=== PATIENT | female | born 1960 | race Caucasian/White ===

== ENCOUNTER 2022-02-20 06:58 | Outpatient (CLI) | payer OTHER | END 2022-02-20 23:59 | disposition home or self-care (01) | LOC: LAB 06:58 | PROVIDERS: ATTEND Specialist | DX: Z01.812 Encounter for preprocedural laboratory examination (principal); Z20.822 Contact with and (suspected) exposure to COVID-19 | CPT/HCPCS: 71045; U0003; C9803 ==

== ENCOUNTER 2022-08-29 13:02 | Outpatient (CLI) | payer OTHER | END 2022-08-29 23:59 | disposition home or self-care (01) | LOC: LAB 13:02 | PROVIDERS: ATTEND Specialist | DX: Z01.812 Encounter for preprocedural laboratory examination (principal); Z20.822 Contact with and (suspected) exposure to COVID-19 | CPT/HCPCS: C9803 ==

== ENCOUNTER 2022-09-04 05:05 | Inpatient (IN) | payer OTHER ==
[~2022-09-04] VITALS: Ht 154.9 cm; Wt 72.1 kg
[2022-09-04] MEDS ORDERED: POLYMYXIN B SULFATE 500,000 UNITS ONE (05:48)
[2022-09-04] MEDS ORDERED: BUPIVACAINE 0.5 % PF 150 MG/30 ML VIAL ONE ×2 (05:48→06:03)
[2022-09-04] MEDS ORDERED: CEFAZOLIN 2 GM in IV D5W 100 ML IV ONE (06:00)
[2022-09-04] MEDS ORDERED: FENTANYL PF 250MCG/5ML AMPUL ONE (06:02)
[2022-09-04] MEDS ORDERED: MIDAZOLAM HCL 2 MG/2ML VIAL ONE (06:03)
[2022-09-04 06:11] VITALS: BP 134/73
[2022-09-04] MEDS ORDERED: TRANEXAMIC ACID 3,000 MG in SODIUM CHLORIDE IRRIG SOLUTION 70 ML IR ONE (06:30)
[2022-09-04] MEDS ORDERED: HYDROMORPHONE 1 MG/1 ML DISP.SYRIN ONE ×2 (08:30→08:53)
[2022-09-04] MEDS ORDERED: MEPERIDINE25 MG SYR 25 MG/ML VIAL ONE (08:43)
[2022-09-04 09:57] VITALS: BP 140/81
[2022-09-04] MEDS ORDERED: BISACODYL SUPP (10 MG) 10 MG/SUPP.RECT SUPP.RECT RC PRN (10:30)
[2022-09-04] MEDS ORDERED: ACETAMINOPHEN 325 MG TABLET PO PRN (10:30)
[2022-09-04] MEDS ORDERED: ZOLPIDEM TARTRATE 5 MG TABLET PO PRN (10:30)
[2022-09-04] MEDS ORDERED: SENNOSIDES 8.6 MG TABLET PO PRN (10:30)
[2022-09-04] MEDS ORDERED: ONDANSETRON HCL/PF 4 MG/2 ML VIAL IVP PRN (10:30)
[2022-09-04] MEDS ORDERED: DOCUSATE SODIUM 250 MG CAPSULE PO PRN (10:30)
[2022-09-04] MEDS: IV D5/0.45 NACL 1,000 ML IV PRN (11:13)
[2022-09-04 11:42] LABS: HEMOGLOBIN 12.3 g/dL (11.5-14.8)
[2022-09-04] MEDS: HYDROMORPHONE 1 MG/1 ML DISP.SYRIN IV PRN (12:37)
[2022-09-04] MEDS ORDERED: LOSA50TA39 PO (14:09)
[2022-09-04] MEDS ORDERED: ROSU10TA2 PO (14:09)
[2022-09-04] MEDS ORDERED: METF-440 PO (14:09)
[2022-09-04] MEDS: ANCEF 1 GM/50 ML D5W IV SCH ×4 (14:10→21:22)
[2022-09-04] MEDS: oxyCODONE IR immediate release 5 MG PO PRN ×4 (14:18→23:47)
[2022-09-04 15:57] VITALS: BP 136/67
[2022-09-04] MEDS: METFORMIN 500 MG TABLET PO SCH (17:12)
[2022-09-04] MEDS: FOLIC ACID 1 MG TABLET PO SCH (17:12)
[2022-09-04] MEDS ORDERED: diphenhydrAMINE HCL 25 MG CAPSULE PO PRN (19:00)
[2022-09-04] MEDS ORDERED: MAG HYDROX/AL HYDROX/SIMETH 30 ML UDC PO PRN (19:00)
[2022-09-04] MEDS ORDERED: MAGNESIUM HYDROXIDE 30 ML UDC PO PRN (19:00)
[2022-09-04 20:00] VITALS: BP 128/71
[2022-09-04] MEDS: FAMOTIDINE (20 MG) 20 MG TABLET PO SCH (20:30)
[2022-09-04] MEDS ORDERED: ATORVASTATIN 10 MG TABLET PO SCH (22:00)
[2022-09-05] MEDS: oxyCODONE IR immediate release 5 MG PO PRN ×4 (02:59→22:24)
[2022-09-05] MEDS: HYDROMORPHONE 1 MG/1 ML DISP.SYRIN IV PRN (06:01)
[2022-09-05 07:00] VITALS: BP 141/67
[2022-09-05] MEDS: ASPIRIN 325 MG TABLET PO SCH (08:39)
[2022-09-05] MEDS: METFORMIN 500 MG TABLET PO SCH ×2 (08:39→16:32)
[2022-09-05] MEDS: DOCUSATE SODIUM 100 MG CAPSULE PO SCH ×2 (08:40→16:32)
[2022-09-05] MEDS: FOLIC ACID 1 MG TABLET PO SCH (08:40)
[2022-09-05] MEDS: LOSARTAN POTASSIUM 50 MG TABLET PO SCH (08:40)
[2022-09-05] MEDS: FAMOTIDINE (20 MG) 20 MG TABLET PO SCH ×2 (08:41→21:27)
[2022-09-05] MEDS ORDERED: FOLI0.4T6 PO (11:08)
[2022-09-05] MEDS ORDERED: DOCU-141 PO (11:08)
[2022-09-05] MEDS ORDERED: FERR325T24 PO (11:08)
[2022-09-05] MEDS ORDERED: oxyCODONE IR immediate release 5 MG PO ONE (12:21)
[2022-09-05] MEDS ORDERED: DEXTROSE 50%-WATER 50 ML DISP.SYRIN IV PRN (15:00)
[2022-09-05 16:16] VITALS: BP 142/67
[2022-09-05] MEDS: BLOOD SUGAR DIAGNOSTIC 1 EACH STRIP IN SCH ×2 (16:42→21:35)
[2022-09-05] MEDS ORDERED: DOCUSATE SODIUM 100 MG CAPSULE PO SCH (17:00)
[2022-09-05] MEDS: IV D5/0.45 NACL 1,000 ML IV PRN (18:48)
[2022-09-05 20:36] VITALS: BP 131/64
[2022-09-05] MEDS: ATORVASTATIN 40 MG TABLET PO SCH (21:27)
[2022-09-05] MEDS: INSULIN REGULAR, HUMAN 100 UNIT/ML 3 ML VIAL SQ PRN (21:35)
[2022-09-06 06:14] LABS: BASOPHILS % (AUTO) 0.3 % (0.0-2.0); EOSINOPHILS % (AUTO) 0.1 % (0.0-6.0); HEMATOCRIT 33 % (33-45); LYMPHOCYTES # (AUTO) 1.9 K/uL (0.8-4.8); LYMPHOCYTES % (AUTO) 18.4 % (20.0-44.0); MEAN CORPUSCULAR HGB CONC 34 g/dl (31.0-36.0); MEAN CORPUSCULAR VOLUME 88 fL (82-100); MONOCYTES # (AUTO) 0.9 K/uL (0.1-1.30); MONOCYTES % (AUTO) 8.6 % (2.0-12.0); NEUTROPHILS # (AUTO) 7.3 K/uL (1.8-8.9); NEUTROPHILS % (AUTO) 72.6 % (43.0-81.0); PLATELET COUNT (AUTO) 188 K/uL (150-450); WHITE BLOOD COUNT (AUTO) 10.1 K/uL (4.3-11.0)
[2022-09-06 06:30] LABS: CALCIUM, SERUM 9.3 mg/dL (8.5-10.1); CREATININE 0.6 mg/dL (0.6-1.3); POTASSIUM 3.6 mmol/L (3.5-5.1)
[2022-09-06] MEDS: BLOOD SUGAR DIAGNOSTIC 1 EACH STRIP IN SCH ×4 (06:33→21:31)
[2022-09-06] MEDS: INSULIN REGULAR, HUMAN 100 UNIT/ML 3 ML VIAL SQ PRN ×4 (06:33→21:31)
[2022-09-06] MEDS: oxyCODONE IR immediate release 5 MG PO PRN ×2 (07:45→17:12)
[2022-09-06] MEDS: FOLIC ACID 1 MG TABLET PO SCH (08:21)
[2022-09-06] MEDS: ASPIRIN 325 MG TABLET PO SCH (08:21)
[2022-09-06] MEDS: FAMOTIDINE (20 MG) 20 MG TABLET PO SCH ×2 (08:21→20:16)
[2022-09-06] MEDS: DOCUSATE SODIUM 100 MG CAPSULE PO SCH ×2 (08:22→17:02)
[2022-09-06] MEDS: METFORMIN 500 MG TABLET PO SCH ×3 (08:22→17:02)
[2022-09-06] MEDS: FERROUS SULFATE (325 MG) 325 MG/TAB TABLET PO SCH (08:22)
[2022-09-06] MEDS: LOSARTAN POTASSIUM 50 MG TABLET PO SCH (08:22)
[2022-09-06] MEDS ORDERED: FOLIC ACID 1 MG TABLET PO SCH (09:00)
[2022-09-06] MEDS ORDERED: LOSARTAN POTASSIUM 50 MG TABLET PO SCH (09:00)
[2022-09-06 09:07] VITALS: BP 133/66
[2022-09-06] MEDS ORDERED: MAGNESIUM HYDROXIDE 30 ML UDC PO ONE (11:39)
[2022-09-06] MEDS: HYDROMORPHONE 1 MG/1 ML DISP.SYRIN IV PRN (13:44)
[2022-09-06 18:31] VITALS: BP 131/64
[2022-09-06 20:00] VITALS: BP 130/66
[2022-09-06] MEDS: ATORVASTATIN 40 MG TABLET PO SCH (21:27)
[2022-09-07] MEDS: oxyCODONE IR immediate release 5 MG PO PRN ×2 (01:48→08:43)
[2022-09-07 06:24] LABS: BASOPHILS % (AUTO) 0.4 % (0.0-2.0); EOSINOPHILS % (AUTO) 0.3 % (0.0-6.0); HEMATOCRIT 33 % (33-45); HEMOGLOBIN 10.9 g/dL (11.5-14.8); LYMPHOCYTES # (AUTO) 2.3 K/uL (0.8-4.8); LYMPHOCYTES % (AUTO) 21.2 % (20.0-44.0); MEAN CORPUSCULAR HGB CONC 33 g/dl (31.0-36.0); MEAN CORPUSCULAR VOLUME 89 fL (82-100); MONOCYTES # (AUTO) 0.8 K/uL (0.1-1.30); MONOCYTES % (AUTO) 7.6 % (2.0-12.0); NEUTROPHILS # (AUTO) 7.5 K/uL (1.8-8.9); NEUTROPHILS % (AUTO) 70.5 % (43.0-81.0); PLATELET COUNT (AUTO) 199 K/uL (150-450); RED BLOOD CELL COUNT(AUTO) 3.69 MIL/uL (4.0-5.2); WHITE BLOOD COUNT (AUTO) 10.7 K/uL (4.3-11.0)
[2022-09-07] MEDS: BLOOD SUGAR DIAGNOSTIC 1 EACH STRIP IN SCH ×2 (06:35→11:46)
[2022-09-07] MEDS: INSULIN REGULAR, HUMAN 100 UNIT/ML 3 ML VIAL SQ PRN ×2 (06:36→11:24)
[2022-09-07 08:00] VITALS: BP 119/65
[2022-09-07] MEDS: ASPIRIN 325 MG TABLET PO SCH (08:19)
[2022-09-07] MEDS: FERROUS SULFATE (325 MG) 325 MG/TAB TABLET PO SCH (08:21)
[2022-09-07] MEDS: DOCUSATE SODIUM 100 MG CAPSULE PO SCH (08:22)
[2022-09-07] MEDS: FAMOTIDINE (20 MG) 20 MG TABLET PO SCH (08:22)
[2022-09-07] MEDS: FOLIC ACID 1 MG TABLET PO SCH (08:22)
[2022-09-07] MEDS: METFORMIN 500 MG TABLET PO SCH (08:22)
[2022-09-07 08:23] VITALS: BP 119/65
[2022-09-07] MEDS: LOSARTAN POTASSIUM 50 MG TABLET PO SCH (08:23)
[2022-09-07] MEDS ORDERED: POLYETHYLENE GLYCOL 3350 17 GM POWD.PACK PO ONE (09:00)
[2022-09-07] MEDS ORDERED: OXYC5CAP18 PO (09:49)
[2022-09-07] MEDS ORDERED: ASPI-992 PO (09:49)
[2022-09-07] MEDS ORDERED: DOCU100C36 PO (09:49)
[2022-09-07] MEDS ORDERED: ACET325T53 PO (09:49)
[2022-09-07] MEDS ORDERED: FAMO20TA80 PO (09:49)
== END 2022-09-07 12:45 | disposition home health service (06) | DRG 470 ==
LOC: DS 05:05 → MED 05:07
PROVIDERS: ADMIT Nurse Practitioner Acute Care; ATTEND Nurse Practitioner Acute Care
PROC: 0SRC0J9 Replacement of Right Knee Joint with Synthetic Substitute, Cemented, Open Approach (ICD-10-PCS; principal; 2022-09-04)
DX: M17.11 Unilateral primary osteoarthritis, right knee (principal); D68.69 Other thrombophilia; I10 Essential (primary) hypertension; E11.9 Type 2 diabetes mellitus without complications; X58.XXXA Exposure to other specified factors, initial encounter; Y99.0 Civilian activity done for income or pay; Z74.09 Other reduced mobility; D64.9 Anemia, unspecified; E66.01 Morbid (severe) obesity due to excess calories; Z79.82 Long term (current) use of aspirin; Z68.30 Body mass index [BMI] 30.0-30.9, adult; E78.5 Hyperlipidemia, unspecified
CPT/HCPCS: 36415; 80048-TC; 82962-TC; 85025-TC; 85027-TC; 87081-TC; 88305-TC; 88311-TC; 97110-TC; 97116-TC; 97530-TC; A4217; A4223; C1713; C1776; G0378; J0690; J1100; J1170; J1815; J2175; J2250; J2405; J2704; J3010; J3490; J7030; J7060; L1830